=== PATIENT | male | born 1970 ===

== ENCOUNTER 2016-08-18 19:43 | Emergency (ER) | payer MEDICAID ==
[2016-08-18 19:46] VITALS: RESP 16
[2016-08-18] MEDS ORDERED: Sodium Chloride 0.9% 1,000 ML IV STA (19:49)
[2016-08-18] MEDS ORDERED: DiphenhydrAMINE 50 mg/ml Inj IVP STA (19:49)
--- NOTE | 2016-08-18 20:14 | ED PDOC ---
HPI: Allergic Reaction Time Seen by Provider: 08/18/16 19:49 Chief Complaint (Nursing): Allergic Reaction Chief Complaint (Provider): Allergic Reaction History Per: Patient History/Exam Limitations: no limitations Onset/Duration Of Symptoms: Hrs (1x hour prior to arrival) Current Symptoms Are (Timing): Still Present Possible Cause: Food (developed right after pt ate rice and beans and pork chops ) Associated Symptoms: Skin Rash, Trouble Swallowing, Itching. denies: Dyspnea Severity: Moderate Additional Complaint(s): 46 year old male with a pertinent medical history of diabetes, HTN, and hypercholesterolemia presents to the ED with a possible allergic reaction. He reports that he developed a tightness in his throat and an itchy rash on his abdomen and back right after he ate dinner (rice and beans and pork chops). He denies having shortness of breath. PMD: Kirt Cheng Jr, MD Past Medical History Reviewed: Historical Data, Nursing Documentation, Vital Signs Vital Signs: Last Vital Signs Temp 98.0 F 08/18/16 19:44 Pulse 79 08/18/16 19:44 Resp 16 08/18/16 19:44 BP 133/87 08/18/16 19:44 Pulse Ox 95 08/18/16 19:44 - Medical History PMH: Asthma, HTN, Hypercholesterolemia - Family History Family History: States: Unknown Family Hx - Social History Alcohol: Other (yes) Drugs: Denies - Home Medications Home Medications: Ambulatory Orders Medication Instructions Recorded Cetirizine HCl [Zyrtec] 10 mg PO DAILY #10 capsule 08/18/16 Famotidine [Pepcid] 20 mg PO Q12 #20 tab 08/18/16 predniSONE [predniSONE Tab] 10 mg PO TID #15 tab 08/18/16 - Allergies Allergies/Adverse Reactions: Allergies Allergy/AdvReac Type Severity Reaction Status Date / Time "hotsauce" Allergy ANAPHYLAXIS Uncoded 08/18/16 19:44 Review of Systems ROS Statement: Except As Marked, All Systems Reviewed And Found Negative ENT: Positive for: Throat Swelling Skin: Positive for: Rash (itchy rash on abdomen and back) Physical Exam - Reviewed Nursing Documentation Reviewed: Yes Vital Signs Reviewed: Yes - Physical Exam Appears: Positive for: Well, Non-toxic, No Acute Distress Head Exam: Positive for: ATRAUMATIC, NORMOCEPHALIC Skin: Positive for: Rash (erythematous rash on lower abdomen and lower back) ENT: Positive for: Pharyngeal Erythema (mild pharyngeal erythema.). Negative for: Other (no trismus) Cardiovascular/Chest: Positive for: Regular Rate, Rhythm Respiratory: Positive for: Normal Breath Sounds. Negative for: Stridor, Respiratory Distress Neurologic/Psych: Positive for: Alert, Oriented (3x) - ECG O2 Sat by Pulse Oximetry: 95 (RA) Pulse Ox Interpretation: Normal - Progress Re-evaluation Time: 22:23 Condition: Improved (No SOB rash improved) Disposition - Clinical Impression Clinical Impression: Allergic reaction - Patient ED Disposition Is Patient to be Admitted: No - Disposition Referrals: [facility] [Outside] Disposition: Routine/Home Disposition Time: 22:24 Condition: FAIR Prescriptions: Cetirizine HCl [Zyrtec] 10 mg PO DAILY #10 capsule Famotidine [Pepcid] 20 mg PO Q12 #20 tab predniSONE [predniSONE Tab] 10 mg PO TID #15 tab Instructions: General Allergic Reaction (ED) Medical Decision Making - Medication Orders Current Medication Orders: Sodium Chloride (Sodium Chloride 0.9%) 1,000 mls @ 150 mls/hr IV .Q6H40M STA Stop: 08/19/16 02:28 Last Admin: 08/18/16 20:06 Dose: 150 mls/hr Discontinued Medications Diphenhydramine HCl (Benadryl) 50 mg IVP STAT STA Stop: 08/18/16 19:50 Last Admin: 08/18/16 20:02 Dose: 50 mg Famotidine (Pepcid) 20 mg IVP STAT STA Stop: 08/18/16 19:50 Last Admin: 08/18/16 20:01 Dose: 20 mg Methylprednisolone (Solu-Medrol) 125 mg IVP ONCE ONE Stop: 08/18/16 19:50 Last Admin: 08/18/16 20:00 Dose: 125 mg Medical Decision Making Medical Decision Makin:49 Initial impression: 46 year old male with an allergic reaction. Initial plan: * benadryl 50 mg IVP * IV NS 1,000ml IV 150 mls/hr * pepcid 20mg IVP * solumedrol 125mg IVP * reevaluation Scribe Attestation: Documented by Michelle Moss, acting as a scribe for Oscar Martinez MD. Provider Scribe Attestation: All medical record entries made by the Scribe were at my direction and personally dictated by me. I have reviewed the chart and agree that the record accurately reflects my personal performance of the history, physical exam, medical decision making, and the department course for this patient. I have also personally directed, reviewed, and agree with the discharge instructions and disposition.
[2016-08-18 22:28] VITALS: BP 123/82; PULSE 68; TEMP 98.2; O2SAT 96
== END 2016-08-18 22:32 | disposition home or self-care (01) ==
LOC: H.ER 19:43
DX: T78.40XA Allergy, unspecified, initial encounter (principal); E78.00 Pure hypercholesterolemia, unspecified; I10 Essential (primary) hypertension; J45.909 Unspecified asthma, uncomplicated

== ENCOUNTER 2016-09-15 09:18 | Emergency (ER) | payer MEDICAID ==
[2016-09-15] MEDS ORDERED: Albuterol-Ipratrop 3 mg / 0.5 (3 ml) UD INH STA ×2 (09:45→09:46)
[2016-09-15] MEDS ORDERED: Albuterol-Ipratrop 3 mg / 0.5 (3 ml) UD IH STA (09:45)
[2016-09-15] MEDS ORDERED: Sodium Chloride 0.9% 1,000 ML IV SCH (09:45)
[2016-09-15 09:48] VITALS: O2SAT 90
--- NOTE | 2016-09-15 09:50 | ED PDOC ---
HPI: SOB/CHF/COPD Time Seen by Provider: 09/15/16 09:31 Chief Complaint (Nursing): Respiratory Distress Chief Complaint (Provider): Dyspnea History Per: Patient History/Exam Limitations: no limitations Onset/Duration Of Symptoms: Days (Monday) Current Symptoms Are (Timing): Still Present Additional Complaint(s): Pt. with dyspnea, cough, congestion, runny nose, yellow phlegm. Chest pain, that is gone now. Tried nebs with no relief. No abd pain, nausea, vomit, diarrhea, weakness. Has asthma and feels similar. No leg pain. Past Medical History Reviewed: Nursing Documentation, Vital Signs Vital Signs: Last Vital Signs Temp 97.0 F L 09/15/16 09:35 Pulse 83 09/15/16 09:35 Resp 24 09/15/16 09:46 BP 140/80 09/15/16 09:35 Pulse Ox 90 L 09/15/16 09:52 - Medical History PMH: Asthma, Diabetes, HTN, Hypercholesterolemia - Surgical History Surgical History: No Surg Hx - Family History Family History: States: Unknown Family Hx - Living Arrangements Living Arrangements: With Family - Social History Current smoker - smoking cessation education provided: No Alcohol: None Drugs: Denies - Home Medications Home Medications: Ambulatory Orders Medication Instructions Recorded Cetirizine HCl [Zyrtec] 10 mg PO DAILY #10 capsule 08/18/16 Famotidine [Pepcid] 20 mg PO Q12 #20 tab 08/18/16 predniSONE [predniSONE Tab] 10 mg PO TID #15 tab 08/18/16 Albuterol Sulfate [Proair Hfa] 0.09 mg IH Q6H PRN #2 inh 09/15/16 predniSONE [predniSONE Tab] 20 mg PO BID 5 Days 09/15/16 - Allergies Allergies/Adverse Reactions: Allergies Allergy/AdvReac Type Severity Reaction Status Date / Time "hotsauce" Allergy ANAPHYLAXIS Uncoded 08/18/16 19:44 Review of Systems ROS Statement: Except As Marked, All Systems Reviewed And Found Negative Constitutional: Positive for: Fever ENT: Positive for: Nose Discharge, Nose Congestion Cardiovascular: Positive for: Chest Pain Respiratory: Positive for: Cough, Shortness of Breath, SOB with Exertion, Sputum , Wheezing Physical Exam - Reviewed Nursing Documentation Reviewed: Yes Vital Signs Reviewed: Yes - Physical Exam Appears: Positive for: Uncomfortable Head Exam: Positive for: ATRAUMATIC, NORMAL INSPECTION, NORMOCEPHALIC Skin: Positive for: Normal Color, Warm, DRY Eye Exam: Positive for: EOMI, Normal appearance, PERRL ENT: Positive for: Nasal Congestion. Negative for: Pharyngeal Erythema, Tonsillar Exudate Neck: Positive for: Normal, Painless ROM, Supple Cardiovascular/Chest: Positive for: Regular Rate, Rhythm. Negative for: Edema Respiratory: Positive for: Decreased Breath Sounds, Wheezing (diffuse), Other ( speaking full sentences). Negative for: Accessory Muscle Use Gastrointestinal/Abdominal: Positive for: Normal Exam, Bowel Sounds, Soft. Negative for: Tenderness Back: Positive for: Normal Inspection. Negative for: L CVA Tenderness, R CVA Tenderness Extremity: Positive for: Normal ROM. Negative for: Tenderness, Pedal Edema Neurologic/Psych: Positive for: Alert, Oriented - Laboratory Results Result Diagrams: 09/15/16 09:45 09/15/16 09:45 Interpretation Of Abn Labs: 14.6 wbc - ECG ECG: Positive for: Interpreted By Me, Viewed By Me ECG Rhythm: Positive for: Normal QRS, Normal ST Segment, Sinus Rhythm O2 Sat by Pulse Oximetry: 90 Pulse Ox Interpretation: Abnormal - Radiology X-Ray: Read By Radiologist X-Ray Interpretation: No Acute Disease - Progress ED Course And Treament: Repeat O2 Sat after tx RA: 92%. 1149: Pt. is aaox3. Pain free. No dyspnea. Walking around ER and speaking in full sentences. Has capacity to make decisions. Mini Mental Status Exam intact. Does not want to stay in the hospital. States he has to go nut picker his kids. Aware of or decreased functioning from asthma and low oxygenation. He will go against medical advice. Disposition - Clinical Impression Clinical Impression: Acute dyspnea, Hypoxia - Patient ED Disposition Is Patient to be Admitted: No Counseled Patient/Family Regarding: Studies Performed, Diagnosis - Disposition Referrals: [facility] [Outside] - 09/15/16 Disposition: Against Medical Advice Disposition Time: 11:51 Condition: FAIR Additional Instructions: Return soon as possible for further evaluation and treatment. You are going against medial advice. You are aware of or decreased functioning with low oxygen in your system. Prescriptions: Albuterol Sulfate [Proair Hfa] 0.09 mg IH Q6H PRN #2 inh PRN Reason: Wheezing predniSONE [predniSONE Tab] 20 mg PO BID 5 Days Instructions: Asthma (ED), Hypoxia (ED) Forms: [employer] ([place])
[2016-09-15 10:11] LABS: BASO # 0.1 K/uL (0.0-0.2); BASO % 0.5 % (0.0-2.0); EOS % 0.2 % (0.0-4.0); LYMPH % 14.1 % (20.0-40.0); MEAN CORPUSCULAR HGB CONC 31.7 g/dL (33.0-37.0); MEAN PLATELET VOLUME 7.3 fl (7.2-11.7); MONO # 1.3 K/uL (0.0-0.8); MONO % 8.8 % (0.0-10.0); NEUT # 11.1 K/uL (1.8-7.0); NEUT % 76.4 % (50.0-75.0); NRBC % 0.1 % (0.0-0.0); RED CELL DISTRIBUTION WIDTH 16.9 % (11.5-14.5); WHITE BLOOD COUNT 14.6 K/uL (4.8-10.8)
[2016-09-15 10:13] LABS: ABG ALLEN TEST YES; ARTERIAL BLOOD GAS HCO3 29.6 mmol/L (21-28); ARTERIAL BLOOD GAS PH 7.37 (7.35-7.45); ARTERIAL BLOOD GAS PO2 84 mm/Hg (80-100)
[2016-09-15 10:17] LABS: ALB/GLOB RATIO 0.9 (1.0-2.1); ALKALINE PHOSPHATASE 127 U/L (38-126); ALT/SGPT 39 U/L (21-72); AST/SGOT 33 U/L (17-59); BILIRUBIN,TOTAL 0.6 mg/dl (0.2-1.3); BLOOD UREA NITROGEN 17 mg/dl (9-20); CALCIUM 9.4 mg/dL (8.4-10.2); CARBON DIOXIDE 29 mmol/L (22-30); CHLORIDE 102 mmol/L (98-107); GFR AFRICAN-AMERICAN > 60; GLUCOSE,RANDOM 143 mg/dL (75-110); MAGNESIUM 2.1 MG/DL (1.6-2.3); PHOSPHOROUS 3.3 mg/dl (2.5-4.5); SODIUM 142 mmol/l (132-148); TOTAL PROTEIN 9.4 G/DL (6.3-8.2)
[2016-09-15 10:30] LABS: POTASSIUM 4.4 MMOL/L (3.6-5.0)
[2016-09-15 10:32] LABS: PARTIAL THROMBOPLASTIN TIME 28.5 Seconds (25.6-37.1)
--- NOTE | 2016-09-15 10:55 | RAD ---
HISTORY: Sepsis Patient COMPARISON: No prior. FINDINGS: LUNGS: Markings appears to be some mild bibasilar atelectasis. PLEURA: No significant pleural effusion identified, no pneumothorax apparent. CARDIOVASCULAR: Normal. OSSEOUS STRUCTURES: No significant abnormalities. VISUALIZED UPPER ABDOMEN: Normal. OTHER FINDINGS: None. IMPRESSION: Mild bibasilar atelectasis. .
[2016-09-15 11:13] LABS: RBC URINE 4 /hpf (0-3); URINE BILIRUBIN NEGATIVE (NEGATIVE); URINE BLOOD SMALL (NEGATIVE); URINE COLOR YELLOW (YELLOW); URINE GLUCOSE (UA) >=500 mg/dL (Normal); URINE KETONE NEGATIVE (NEGATIVE); URINE LEUKOCYTE ESTERASE NEG Leu/uL (Negative); URINE PROTEIN 30 mg/dL (NEGATIVE); URINE UROBILINOGEN 0.2-1.0 mg/dL (0.2-1.0); WBC URINE 1 /hpf (0-5)
[2016-09-15 11:50] VITALS: BP 125/75; PULSE 86; RESP 16; TEMP 99.3
--- NOTE | 2016-09-16 18:21 | CARD ---
APPROVED REPORT EKG Measurement Heart [id number] <Conclusion> Normal sinus rhythm Normal ECG
== END 2016-09-15 12:02 | disposition left against medical advice (07) ==
LOC: H.ER 09:18
DX: J45.909 Unspecified asthma, uncomplicated (principal); R09.02 Hypoxemia; E11.9 Type 2 diabetes mellitus without complications; E78.00 Pure hypercholesterolemia, unspecified; I10 Essential (primary) hypertension; J44.9 Chronic obstructive pulmonary disease, unspecified

== ENCOUNTER 2017-03-24 09:25 | Emergency (ER) | payer MEDICAID ==
[2017-03-24 09:33] VITALS: BMI 42.3
--- NOTE | 2017-03-24 10:05 | ED PDOC ---
Lower Extremity Pain/Injury Time Seen by Provider: 03/24/17 09:35 Chief Complaint (Nursing): Lower Extremity Problem/Injury Additional Complaint(s): Patient is a 46 y/o M presenting with L leg swelling. 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 He reports that 3 weeks ago he developed swelling in his L knee. He reports that the swelling them began to travel into his L lower extremity. He saw his PMD who sent him for duplex which was negative for DVT, "no evidence of deep vein thrombosis or obstruction in the left leg. Complex fluid collection in the left calf measuring 6cm x 2 cm x 6cm, most likely representing a hematoma although a complex fluid collection of other etiology cannot be entirely excluded." Patient was sent in by PMD for CT as unable to get it outpatient due to long weekend. Patient reports that PMD increased his lasix. Denies R leg swelling. Denies chest pain, shortness of breath, fever. Past Medical History Vital Signs: Last Vital Signs Temp 98.4 F 03/24/17 09:32 Pulse 85 03/24/17 09:32 Resp 16 03/24/17 09:32 BP 150/84 03/24/17 09:32 Pulse Ox 95 03/24/17 09:32 - Medical History PMH: Asthma, Diabetes, HTN, Hypercholesterolemia - Family History Family History: States: Unknown Family Hx - Home Medications Home Medications: Ambulatory Orders Medication Instructions Recorded Aspirin [Lo-Dose Aspirin EC] 81 mg PO DAILY 03/24/17 Atorvastatin [Lipitor] 10 mg PO DAILY 03/24/17 Canagliflozin [Invokana] 300 mg PO DAILY 03/24/17 Diltiazem HCl [Cartia Xt] 240 mg PO DAILY 03/24/17 Furosemide [Lasix] 40 mg PO DAILY 03/24/17 Gabapentin [Neurontin] 800 mg PO TID 03/24/17 Insulin Glargine,Hum.rec.anlog 15 unit SC BID 03/24/17 [Basaglar Titiikpen U-100] Linagliptin [Tradjenta] 5 mg PO DAILY 03/24/17 Lisinopril [Zestril] 5 mg PO DAILY 03/24/17 Nortriptyline HCl [Pamelor] 50 mg PO HS 03/24/17 Sumatriptan Succinate [Imitrex] 50 mg PO PRN PRN 03/24/17 metFORMIN [glucOPHAGE] 500 mg PO BID 03/24/17 - Allergies Allergies/Adverse Reactions: Allergies Allergy/AdvReac Type Severity Reaction Status Date / Time "hotsauce" Allergy ANAPHYLAXIS Uncoded 08/18/16 19:44 Review of Systems ROS Statement: Except As Marked, All Systems Reviewed And Found Negative Constitutional: Negative for: Fever, Chills Cardiovascular: Positive for: Edema (to L leg). Negative for: Chest Pain, Palpitations, Orthopnea, Paroxysmal Noc. Dyspnea, Light Headedness Respiratory: Negative for: Cough, Shortness of Breath, SOB with Exertion, Wheezing Gastrointestinal: Negative for: Nausea, Vomiting, Abdominal Pain, Diarrhea, Constipation Genitourinary Male: Negative for: Dysuria Musculoskeletal: Negative for: Back Pain Neurological: Negative for: Weakness, Numbness, Incoordination, Altered Mental Status, Headache Physical Exam - Reviewed Nursing Documentation Reviewed: Yes Vital Signs Reviewed: Yes - Physical Exam Appears: Positive for: Well, Non-toxic Head Exam: Positive for: ATRAUMATIC, NORMAL INSPECTION, NORMOCEPHALIC Skin: Positive for: Normal Color. Negative for: Rash (normal color and temperature to b/l lower extremities) Neck: Positive for: Supple Cardiovascular/Chest: Positive for: Regular Rate, Rhythm Respiratory: Positive for: Normal Breath Sounds. Negative for: Accessory Muscle Use, Crackles, Rales, Rhonchi, Stridor, Wheezing Gastrointestinal/Abdominal: Positive for: Soft. Negative for: Tenderness, Mass , Distended Back: Positive for: Normal Inspection Extremity: Positive for: Normal ROM, Swelling (LLE swelling, Normal ROM, no tenderness, distal pulses intact). Negative for: Deformity Neurologic/Psych: Positive for: Alert, Oriented, Gait (steady) - Laboratory Results Result Diagrams: 03/24/17 10:07 03/24/17 10:07 - ECG O2 Sat by Pulse Oximetry: 95 Medical Decision Making Medical Decision Making: Will get CT with IV contrast to evaluate further. Afebrile and normal labs. Normal wbc with no shift. Blood glucose WNL PROCEDURE: CT scan left lower extremity HISTORY: LLE swelling, u/s shows collection vs hematoma COMPARISON: No prior study available for comparison TECHNIQUE: Technique: CT scan of the left lower extremity performed in the arterial phase of enhancement. Coronal and sagittal reformats, and well as rotating MIP images of the vessels generated at the workstation. Intravenous contrast dose: 95 cc Omnipaque 300 contrast Radiation dose: Total exam DLP = 534.24 mGy-cm. This CT exam was performed using one or more of the following dose reduction techniques: Automated exposure control, adjustment of the mA and/or kV according to patient size, and/or use of iterative reconstruction technique. . FINDINGS: The current study reveals an elliptical shaped apparent intramuscular collection apparently extrinsic to the superomedial aspect of the left gastrocnemius muscle 8.24 cm cc x 4.9 cm trans x 2.3 cm AP measuring approximately. This collection has a thin enhancing rim. Centrally, this presumed collection exhibits predominately homogeneous low-attenuation changes with scattered areas of increased attenuation. . . The superior margin of this collection appears to be contiguous with the dorsal aspect of a the joint effusion - popliteal fluid collection. The suprapatellar component of the joint effusion exhibits slightly a more thick walled enhancement. . There is mild incompletely visualized infiltration changes within the subcutaneous tissues distally. . Additionally, there are areas of non loculated subcutaneous fluid is well distally. Collectively these findings could represent a primary at injury to the knee joint with joint effusion (with what appears represent some hemorrhagic conversion) dissecting inferiorly. Note these findings were discussed with Dr. Feldman at approximately 12:10 p.m. with written down and read back verification. The osseous structures intact. The no evidence of acute displaced fracture nor dislocation. No cortical destructive changes. Recommend followup of MRI of the left knee for further evaluation to assess for internal derangement. IMPRESSION: There is a suprapatellar joint effusion with extension posteriorly and medially and apparent inferior dissection into the posteromedial aspect medial head gastrocnemius muscle. There also appears to be some heterogeneous attenuation within the posterior collection possibly representing some hemorrhagic conversion. The possibility of superinfection not completely excluded. Note that these findings were discussed with emergency room attending physician Dr. Feldman at approximately 12:10 p.m. with written down and read back verification. Followup by MRI of the left knee recommended to assess for internal derangement. 1:06PM Reeval: Patient reports hx of repetitive work on his knees but denies other knee trauma. Above CT results showing hematoma and primary injury to knee joint consistent with history and lab results. Patient denies current need pain. He was given copy of results and is aware of need to follow-up with PMD for MRI and to avoid repetitive work on knees and the need to elevate leg and rest. He was given detailed return instructions. Patient and fiance report understanding. Disposition - Clinical Impression Clinical Impression: Hematoma, Knee effusion - Disposition Disposition: Routine/Home Disposition Time: 12:57 Condition: GOOD Additional Instructions: Follow-up with your PMD for further evaluation and likely outpatient MRI within 2 days. Return to ED immediately if condition worsens. Elevate and rest knee and leg. Forms: [employer] (Citizen Of [place])
[2017-03-24 10:14] LABS: BASO # 0.1 K/uL (0.0-0.2); EOS # 0.1 K/uL (0.0-0.7); EOS % 1.4 % (0.0-4.0); HEMOGLOBIN 14.3 g/dL (12.0-18.0); LYMPH # 2.9 K/uL (1.0-4.3); LYMPH % 30.4 % (20.0-40.0); MEAN CELL VOLUME 80.6 fl (80.0-94.0); MEAN CORPUSCULAR HEMOGLOBIN 25.8 pg (27.0-31.0); MEAN PLATELET VOLUME 7.4 fl (7.2-11.7); MONO % 10.8 % (0.0-10.0); NEUT # 5.5 K/uL (1.8-7.0); NEUT % 56.4 % (50.0-75.0); NRBC % 0.2 % (0.0-0.0); RBC 5.53 Mil/uL (4.40-5.90); RED CELL DISTRIBUTION WIDTH 16.9 % (11.5-14.5); WHITE BLOOD COUNT 9.7 K/uL (4.8-10.8)
[2017-03-24 10:23] LABS: ALBUMIN 4.1 g/dL (3.5-5.0); ALT/SGPT 39 U/L (21-72); AST/SGOT 28 U/L (17-59); BLOOD UREA NITROGEN 16 mg/dl (9-20); CALCIUM 9.5 mg/dL (8.4-10.2); GFR AFRICAN-AMERICAN > 60; GFR NON-AFRICAN AMERICAN > 60
[2017-03-24] MEDS ORDERED: Sodium Chloride 0.9% 50 ML IV ONE (10:28)
[2017-03-24] MEDS ORDERED: Iohexol 300 100 ML IJ ONE (10:28)
--- NOTE | 2017-03-24 12:51 | CT ---
PROCEDURE: CT scan left lower extremity HISTORY: LLE swelling, u/s shows collection vs hematoma COMPARISON: No prior study available for comparison TECHNIQUE: Technique: CT scan of the left lower extremity performed in the arterial phase of enhancement. Coronal and sagittal reformats, and well as rotating MIP images of the vessels generated at the workstation. Intravenous contrast dose: 95 cc Omnipaque 300 contrast Radiation dose: Total exam DLP = 534.24 mGy-cm. This CT exam was performed using one or more of the following dose reduction techniques: Automated exposure control, adjustment of the mA and/or kV according to patient size, and/or use of iterative reconstruction technique. . FINDINGS: The current study reveals an elliptical shaped apparent intramuscular collection apparently extrinsic to the superomedial aspect of the left gastrocnemius muscle 8.24 cm cc x 4.9 cm trans x 2.3 cm AP measuring approximately. This collection has a thin enhancing rim. Centrally, this presumed collection exhibits predominately homogeneous low-attenuation changes with scattered areas of increased attenuation. . . The superior margin of this collection appears to be contiguous with the dorsal aspect of a the joint effusion - popliteal fluid collection. The suprapatellar component of the joint effusion exhibits slightly a more thick walled enhancement. . There is mild incompletely visualized infiltration changes within the subcutaneous tissues distally. . Additionally, there are areas of non loculated subcutaneous fluid is well distally. Collectively these findings could represent a primary at injury to the knee joint with joint effusion (with what appears represent some hemorrhagic conversion) dissecting inferiorly. Note these findings were discussed with Dr. Feldman at approximately 12:10 p.m. with written down and read back verification. The osseous structures intact. The no evidence of acute displaced fracture nor dislocation. No cortical destructive changes. Recommend followup of MRI of the left knee for further evaluation to assess for internal derangement. IMPRESSION: There is a suprapatellar joint effusion with extension posteriorly and medially and apparent inferior dissection into the posteromedial aspect medial head gastrocnemius muscle. There also appears to be some heterogeneous attenuation within the posterior collection possibly representing some hemorrhagic conversion. The possibility of superinfection not completely excluded. Note that these findings were discussed with emergency room attending physician Dr. Feldman at approximately 12:10 p.m. with written down and read back verification. Followup by MRI of the left knee recommended to assess for internal derangement.
[2017-03-24 13:52] VITALS: BP 122/74; PULSE 72; RESP 20; TEMP 98.5; O2SAT 98
== END 2017-03-24 13:00 | disposition home or self-care (01) ==
LOC: H.ER 09:25
DX: R60.0 Localized edema (principal); E11.9 Type 2 diabetes mellitus without complications; E78.00 Pure hypercholesterolemia, unspecified; I10 Essential (primary) hypertension; J45.909 Unspecified asthma, uncomplicated; Z79.4 Long term (current) use of insulin; Z79.82 Long term (current) use of aspirin
CPT/HCPCS: 73701; 80053; 82948; 85025; 99284; Q9967

== ENCOUNTER 2017-04-27 16:08 | Emergency (ER) | payer MEDICAID ==
[2017-04-27 16:08] VITALS: BMI 42.3
[2017-04-27 16:47] VITALS: BP 132/79; PULSE 87; RESP 18; TEMP 98.7; O2SAT 98
--- NOTE | 2017-04-27 17:11 | ED PDOC ---
Lower Extremity Pain/Injury Time Seen by Provider: 04/27/17 16:51 Chief Complaint (Nursing): Lower Extremity Problem/Injury Chief Complaint (Provider): Calf pain/swelling History Per: Patient History/Exam Limitations: no limitations Onset/Duration Of Symptoms: Days (x2) Current Symptoms Are (Timing): Still Present Additional Complaint(s): 46 year old male with a past medical history of diabetes and hypertension, presents to the ED complaining of pain and redness to the right calf since yesterday. Denies any associated trauma, chest pain, or shortness of breath. PMD: Non-[facility] Provider Past Medical History Reviewed: Historical Data, Nursing Documentation, Vital Signs Vital Signs: Last Vital Signs Temp 98.7 F 04/27/17 16:43 Pulse 87 04/27/17 16:43 Resp 18 04/27/17 16:43 BP 132/79 04/27/17 16:43 Pulse Ox 98 04/27/17 16:43 - Medical History PMH: Asthma, Diabetes, HTN, Hypercholesterolemia - Family History Family History: States: Unknown Family Hx - Home Medications Home Medications: Ambulatory Orders Medication Instructions Recorded Aspirin [Lo-Dose Aspirin EC] 81 mg PO DAILY 03/24/17 Atorvastatin [Lipitor] 10 mg PO DAILY 03/24/17 Canagliflozin [Invokana] 300 mg PO DAILY 03/24/17 Diltiazem HCl [Cartia Xt] 240 mg PO DAILY 03/24/17 Furosemide [Lasix] 40 mg PO DAILY 03/24/17 Gabapentin [Neurontin] 800 mg PO TID 03/24/17 Insulin Glargine,Hum.rec.anlog 15 unit SC BID 03/24/17 [Basaglar Kwikpen U-100] Linagliptin [Tradjenta] 5 mg PO DAILY 03/24/17 Lisinopril [Zestril] 5 mg PO DAILY 03/24/17 Nortriptyline HCl [Pamelor] 50 mg PO HS 03/24/17 Sumatriptan Succinate [Imitrex] 50 mg PO PRN PRN 03/24/17 metFORMIN [glucOPHAGE] 500 mg PO BID 03/24/17 Cephalexin [cephalexin] 500 mg PO Q6 #28 cap 04/27/17 Sulfamethoxazole/Trimethoprim 2 tab PO BID #28 tab 04/27/17 [Bactrim DS 800 mg-160 mg] - Allergies Allergies/Adverse Reactions: Allergies Allergy/AdvReac Type Severity Reaction Status Date / Time "ildaauce" Allergy ANAPHYLAXIS Uncoded 08/18/16 19:44 Review of Systems ROS Statement: Except As Marked, All Systems Reviewed And Found Negative Cardiovascular: Negative for: Chest Pain Respiratory: Negative for: Shortness of Breath Musculoskeletal: Positive for: Other (right calf redness and pain) Physical Exam - Reviewed Nursing Documentation Reviewed: Yes Vital Signs Reviewed: Yes - Physical Exam Appears: Positive for: Non-toxic, No Acute Distress Extremity: Positive for: Normal ROM, Other (2 x 2 cm erythematous area without induration or fluctuance. Moderate erythema. No streaking or open wound). Negative for: Deformity Neurologic/Psych: Positive for: Alert, Oriented - ECG O2 Sat by Pulse Oximetry: 98 (RA) Pulse Ox Interpretation: Normal Medical Decision Making Medical Decision Making: Time: 16:59 Initial Plan: Stable for discharge home. Patient given strict instructions that if redness worsens or develops fever, he is to return to ED. Scribe Attestation: Documented by Stacey Almaraz, acting as a scribe for Royal Mora PA-C Provider Scribe Attestation: All medical record entries made by the Scribe were at my direction and personally dictated by me. I have reviewed the chart and agree that the record accurately reflects my personal performance of the history, physical exam, medical decision making, and the department course for this patient. I have also personally directed, reviewed, and agree with the discharge instructions and disposition. Disposition - Clinical Impression Clinical Impression: Cellulitis - Patient ED Disposition Is Patient to be Admitted: No - Disposition Disposition: Routine/Home Disposition Time: 17:21 Condition: STABLE Prescriptions: Cephalexin [cephalexin] 500 mg PO Q6 #28 cap Sulfamethoxazole/Trimethoprim [Bactrim DS 800 mg-160 mg] 2 tab PO BID #28 tab Instructions: Cellulitis (ED) Forms: [employer] (Hebrew)
== END 2017-04-27 17:40 | disposition home or self-care (01) ==
LOC: H.ER 16:08
DX: L03.115 Cellulitis of right lower limb (principal); E11.9 Type 2 diabetes mellitus without complications; Z79.4 Long term (current) use of insulin

== ENCOUNTER 2017-08-04 07:15 | Emergency (ER) | payer MEDICAID ==
[2017-08-04 07:23] VITALS: BMI 45.4
--- NOTE | 2017-08-04 08:56 | US ---
PROCEDURE: The left lower extremity venous duplex Doppler. HISTORY: left lower leg pain swelling COMPARISON: None available. TECHNIQUE: Common femoral, superficial femoral, popliteal and posterior tibial veins were evaluated. Flow was assessed with color Doppler, compressibility, assessment of phasic flow and augmentation response. FINDINGS: COMMON FEMORAL VEIN: Unremarkable. SUPERFICIAL FEMORAL VEIN: Unremarkable. POPLITEAL VEIN: Unremarkable. POSTERIOR TIBIAL VEIN: Unremarkable. OTHER FINDINGS: None. IMPRESSION: No evidence of deep venous thrombosis in the left ower extremity.
--- NOTE | 2017-08-04 09:13 | ED PDOC ---
Lower Extremity Pain/Injury Time Seen by Provider: 08/04/17 07:32 Chief Complaint (Nursing): Lower Extremity Problem/Injury Chief Complaint (Provider): Lower Extremity Problem/Injury History Per: Patient History/Exam Limitations: no limitations Onset/Duration Of Symptoms: Hrs (x 9) Additional Complaint(s): 47 years old male with history of hypertension and diabetes presents to the ED complaining of left foot and left ankle pain onset midnight. 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 He states pain worsens with walking. Patient denies any injuries or taking any medication for pain. PMD: non provided Past Medical History Reviewed: Historical Data, Nursing Documentation, Vital Signs Vital Signs: Last Vital Signs Temp 98.1 F 08/04/17 07:24 Pulse 83 08/04/17 07:24 Resp 20 08/04/17 07:24 BP 141/84 08/04/17 07:24 Pulse Ox 96 08/04/17 07:24 - Medical History PMH: Asthma, Diabetes, HTN, Hypercholesterolemia - Surgical History Surgical History: No Surg Hx - Family History Family History: States: Unknown Family Hx - Social History Current smoker - smoking cessation education provided: Yes Alcohol: Social Drugs: Denies - Home Medications Home Medications: Ambulatory Orders Medication Instructions Recorded Aspirin [Lo-Dose Aspirin EC] 81 mg PO DAILY 03/24/17 Atorvastatin [Lipitor] 10 mg PO DAILY 03/24/17 Canagliflozin [Invokana] 300 mg PO DAILY 03/24/17 Diltiazem HCl [Cartia Xt] 240 mg PO DAILY 03/24/17 Furosemide [Lasix] 40 mg PO DAILY 03/24/17 Gabapentin [Neurontin] 800 mg PO TID 03/24/17 Insulin Glargine,Hum.rec.anlog 15 unit SC BID 03/24/17 [Basaglar Kwikpen U-100] Linagliptin [Tradjenta] 5 mg PO DAILY 03/24/17 Lisinopril [Zestril] 5 mg PO DAILY 03/24/17 Nortriptyline HCl [Pamelor] 50 mg PO HS 03/24/17 Sumatriptan Succinate [Imitrex] 50 mg PO PRN PRN 03/24/17 metFORMIN [glucOPHAGE] 500 mg PO BID 03/24/17 Cephalexin [cephalexin] 500 mg PO Q6 #28 cap 04/27/17 Sulfamethoxazole/Trimethoprim 2 tab PO BID #28 tab 04/27/17 [Bactrim DS 800 mg-160 mg] Naproxen 500 mg PO BID #20 tab 08/04/17 - Allergies Allergies/Adverse Reactions: Allergies Allergy/AdvReac Type Severity Reaction Status Date / Time "hotsauce" Allergy ANAPHYLAXIS Uncoded 08/18/16 19:44 Wells Criteria for PE - Wells Criteria for Pulmonary Embolism Clinical Signs and Symptoms of DVT: Yes P.E is #1 Diagnosis, or Equally Likely: No Heart Rate >100: No Immobilization at least 3 days;Surgery previous 4 weeks: No Previous, objectively diagnosed PE or DVT: No Hemoptysis: No Malignancy w/treatment within 6 months, or palliative: No Total Score: 3 Review of Systems ROS Statement: Except As Marked, All Systems Reviewed And Found Negative Musculoskeletal: Positive for: Leg Pain (left ankle), Foot Pain (left) Physical Exam - Reviewed Nursing Documentation Reviewed: Yes Vital Signs Reviewed: Yes - Physical Exam Appears: Positive for: Non-toxic, No Acute Distress Head Exam: Positive for: ATRAUMATIC, NORMOCEPHALIC Extremity: Positive for: Normal ROM (upper and lower), Tenderness (left foot and ankle on palpation), Other (Removed varicose veins before. No redness of ankle or feet). Negative for: Deformity, Swelling (left foot or ankle) Neurologic/Psych: Positive for: Alert, Oriented - ECG O2 Sat by Pulse Oximetry: 96 (RA) Pulse Ox Interpretation: Normal - Progress Re-evaluation Time: 10:00 Condition: Re-examined, Improved Medical Decision Making Medical Decision Making: Time: 08 Initial Impression: Left foot and ankle pain. Differential includes but not limited to arthritis, peripheral edema, gout, diabetic neuropathy. Initial Plan: --Glucose, POC --Left ankle 3 views --Duplex Lower Extremity Vein Left US 0855 Extremity US FINDINGS: COMMON FEMORAL VEIN: Unremarkable. SUPERFICIAL FEMORAL VEIN: Unremarkable. POPLITEAL VEIN: Unremarkable. POSTERIOR TIBIAL VEIN: Unremarkable. OTHER FINDINGS: None. IMPRESSION: No evidence of deep venous thrombosis in the left ower extremity. 0917 Ankle X-Ray FINDINGS: BONES: No acute fracture or destructive bony lesion identified. JOINTS: Normal. No osteoarthritis. Ankle mortise maintained. Talar dome intact SOFT TISSUES: Diffuse soft tissue edema surrounds the ankle and affects the distal leg soft tissues incidentally captured in a pattern that may reflect cellulitis. Clinically correlate. No emphysema soft tissue changes are related or retained radiodense foreign body. OTHER FINDINGS: None. IMPRESSION: No acute fracture dislocation. Diffuse ankle edema appears moderate and may reflect cellulitis. Clinically correlate. Scribe Attestation: Documented by Elva Gilliam, acting as a scribe for Richy Osorio MD. Provider Scribe Attestation: All medical record entries made by the Scribe were at my direction and personally dictated by me. I have reviewed the chart and agree that the record accurately reflects my personal performance of the history, physical exam, medical decision making, and the department course for this patient. I have also personally directed, reviewed, and agree with the discharge instructions and disposition. Disposition - Clinical Impression Clinical Impression: Foot pain, left - Patient ED Disposition Is Patient to be Admitted: No Counseled Patient/Family Regarding: Studies Performed, Diagnosis, Need For Followup - Disposition Referrals: Podiatry Clinic [Outside] Disposition: Routine/Home Disposition Time: 10:00 Condition: GOOD Additional Instructions: Take medications for pain. Follow up with your PCP in 2-3 days. Prescriptions: Naproxen 500 mg PO BID #20 tab Instructions: Muscle and Bone Pain (DC) Forms: [facility] ED School/Work Excuse
--- NOTE | 2017-08-04 09:19 | RAD ---
PROCEDURE: Left Ankle Radiographs. HISTORY: left ankle swelling pain no injury COMPARISON: None FINDINGS: BONES: No acute fracture or destructive bony lesion identified. JOINTS: Normal. No osteoarthritis. Ankle mortise maintained. Talar dome intact SOFT TISSUES: Diffuse soft tissue edema surrounds the ankle and affects the distal leg soft tissues incidentally captured in a pattern that may reflect cellulitis. Clinically correlate. No emphysema soft tissue changes are related or retained radiodense foreign body. OTHER FINDINGS: None. IMPRESSION: No acute fracture dislocation. Diffuse ankle edema appears moderate and may reflect cellulitis. Clinically correlate.
[2017-08-04 11:07] VITALS: BP 142/77; PULSE 75; RESP 18; TEMP 98
[2017-08-05 17:13] VITALS: O2SAT 96
== END 2017-08-04 11:05 | disposition home or self-care (01) ==
LOC: H.ER 07:15
DX: M79.672 Pain in left foot (principal); E11.9 Type 2 diabetes mellitus without complications; E78.00 Pure hypercholesterolemia, unspecified; F17.200 Nicotine dependence, unspecified, uncomplicated; I10 Essential (primary) hypertension; J45.909 Unspecified asthma, uncomplicated; Z79.4 Long term (current) use of insulin; Z79.82 Long term (current) use of aspirin
CPT/HCPCS: 73610; 82948; 93971; 96372; 99283; J1885